=== PATIENT | female | born 1945 | race African-American/Black ===

== ENCOUNTER → 2016-10-18 | Outpatient (CLI) | payer MEDICARE, MEDICAID ==
[~2016-10-18] MED LIST: GLIM4TAB2; IOHEXOL-300 100 ML BOTTLE ONE; SODIUM CHLORIDE 0.9% 10ML VIAL ONE
== END | disposition home or self-care (01) ==
LOC: US 09:03
PROVIDERS: ATTEND Internal Medicine Nephrology
DX: R22.0 Localized swelling, mass and lump, head (principal); E04.2 Nontoxic multinodular goiter
CPT/HCPCS: 70460; 70491; 76536; A4216; Q9967

== ENCOUNTER → 2017-07-18 | Outpatient (CLI) | payer MEDICARE, MEDICAID ==
[~2017-07-18] MED LIST changes: -IOHEXOL-300 100 ML BOTTLE ONE; -SODIUM CHLORIDE 0.9% 10ML VIAL ONE
== END | disposition home or self-care (01) ==
LOC: US 09:49
PROVIDERS: ATTEND Internal Medicine Gastroenterology
DX: K80.20 Calculus of gallbladder without cholecystitis without obstruction (principal); K76.0 Fatty (change of) liver, not elsewhere classified; R16.1 Splenomegaly, not elsewhere classified; E11.9 Type 2 diabetes mellitus without complications; I10 Essential (primary) hypertension; J44.9 Chronic obstructive pulmonary disease, unspecified
CPT/HCPCS: 76700

== ENCOUNTER 2017-07-21 11:17 | Inpatient (IN) | payer MEDICARE, MEDICAID ==
[~2017-07-21] VITALS: Ht 162.6 cm; Wt 147.0 kg
[2017-07-21] MEDS ORDERED: ASPIRIN 81MG TABLET PO STA (14:18)
[2017-07-21] MEDS ORDERED: METHYLPREDNISOLONE SOD SUCC 125 MG/2 ML VIAL IV STA (14:18)
[2017-07-21] MEDS ORDERED: IPRATROPIUM/ALBUTEROL 0.5-3(2.5)MG/3ML NEB HHN ONE (14:30)
[2017-07-21] MEDS ORDERED: LEVOFLOXACIN 750MG PREMIX 150 ML IV ONE (14:30)
[2017-07-21 14:53] LABS: BASOPHILS % 0.4 % (0.0-2.0); EOSINOPHILS % 0.2 % (0.0-5.0); HEMATOCRIT. 37.7 % (36.0-48.0); HEMOGLOBIN. 11.5 g/dL (12.0-16.0); MEAN CORPUSCULAR VOLUME 108.5 fL (81.0-99.0); MEAN PLATELET VOLUME 10.4 fl (7.4-10.4); MONOCYTES % 6.5 % (2.0-8.0); NEUTROPHILS % 83.9 % (40.0-76.0); PLATELET 137 x1000/uL (130-400); RED BLOOD CELL COUNT 3.47 mill/uL (4.2-5.4); RED CELL DISTRIBUTION WIDTH 15.9 % (11.6-14.6)
[2017-07-21 14:56] LABS: PARTIAL THROMBOPLASTIN TIME 28.6 sec (23.4-31.0); PROTHROMBIN TIME 10.7 sec (9.4-11.6)
[2017-07-21 15:04] LABS: CARBON DIOXIDE 25 mEq/L (21-32); CHLORIDE 100 mEq/L (98-107); TROPONIN I 0.02 ng/mL (0.00-0.04)
[2017-07-21] MEDS ORDERED: MORPHINE SULFATE 2 MG/ML CPJ (NOT FOR IM USE) IV ONE (22:15)
[2017-07-21] MEDS ORDERED: ONDANSETRON HCL 4MG/2ML VIAL IV PRN (22:30)
[2017-07-21] MEDS ORDERED: DIPHENHYDRAMINE 50MG/ML VIAL IV PRN (22:30)
[2017-07-21] MEDS ORDERED: CLONIDINE 0.1MG TABLET PO PRN (22:30)
[2017-07-21] MEDS ORDERED: MAGNESIUM/ALUMINUM HYDROXIDE/SIMETHICONE 30ML UDC PO PRN (22:30)
[2017-07-21] MEDS: ACETAMINOPHEN 325MG TABLET PO PRN (22:43)
[2017-07-22] MEDS: SODIUM CHLORIDE 0.9% INJ 3ML FLUSH IVF SCH ×3 (06:32→22:39)
[2017-07-22 10:11] VITALS: BP 108/68
[2017-07-22 10:16] VITALS: BP 108/68
[2017-07-22] MEDS ORDERED: FOLIC ACID/VITAMIN B COMP W-C TABLET PO SCH (11:45)
[2017-07-22] MEDS ORDERED: AMLODIPINE 10MG TABLET PO SCH (11:45)
[2017-07-22] MEDS ORDERED: NIFEDIPINE XL 60MG TAB PO SCH (11:45)
[2017-07-22] MEDS ORDERED: TAMSULOSIN HCL 0.4MG SR CAPSULE PO SCH (11:45)
[2017-07-22 12:00] VITALS: BP 121/59
[2017-07-22] MEDS ORDERED: DEXTROSE 50% WATER 50ML SYRINGE IV PRN (12:15)
[2017-07-22] MEDS: INSULIN LISPRO 100 UNITS/ML SUBCUT SCH ×3 (12:50→20:24)
[2017-07-22] MEDS ORDERED: CALCIUM ACETATE 667MG CAPSULE PO SCH (13:00)
[2017-07-22] MEDS: BLOOD SUGAR DIAGNOSTIC STRIP TEST SCH ×3 (13:05→20:24)
[2017-07-22 16:00] VITALS: BP 94/44
[2017-07-22 16:30] VITALS: BP_SYST 126; BP_SYST 94; BP_DIAS 44; BP_DIAS 62
[2017-07-22] MEDS ORDERED: CLONIDINE 0.1MG TABLET PO SCH (17:00)
[2017-07-22] MEDS ORDERED: LOSARTAN POTASSIUM 50 MG TABLET PO SCH (17:00)
[2017-07-22] MEDS: IPRATROPIUM/ALBUTEROL 0.5-3(2.5)MG/3ML NEB INH PRN (17:10)
[2017-07-22] MEDS: ACETAMINOPHEN 325MG TABLET PO PRN (18:52)
[2017-07-22] MEDS: GUAIFENESIN 200MG/10ML SUGAR FREE UDC PO PRN (20:25)
[2017-07-22 20:32] VITALS: BP 115/41
[2017-07-22] MEDS ORDERED: CARVEDILOL 25MG TABLET PO SCH (21:00)
[2017-07-23] VITALS: BP 107/52
[2017-07-23 04:36] VITALS: BP 101/70
[2017-07-23] MEDS: BLOOD SUGAR DIAGNOSTIC STRIP TEST SCH ×4 (06:23→21:36)
[2017-07-23] MEDS: SODIUM CHLORIDE 0.9% INJ 3ML FLUSH IVF SCH ×3 (06:24→21:40)
[2017-07-23 07:41] VITALS: BP 96/60
[2017-07-23] MEDS: INSULIN LISPRO 100 UNITS/ML SUBCUT SCH ×4 (07:50→21:00)
[2017-07-23 12:00] VITALS: BP 93/39
[2017-07-23] MEDS: GUAIFENESIN 200MG/10ML SUGAR FREE UDC PO PRN (13:27)
[2017-07-23] MEDS: IPRATROPIUM/ALBUTEROL 0.5-3(2.5)MG/3ML NEB INH PRN (13:46)
[2017-07-23 16:00] VITALS: BP 119/54
[2017-07-23] MEDS: APIXABAN 2.5 MG TABLET PO SCH (18:49)
[2017-07-23 19:31] LABS: BASOPHILS % 0.4 % (0.0-2.0); EOSINOPHILS % 0.2 % (0.0-5.0); HEMATOCRIT. 35.5 % (36.0-48.0); HEMOGLOBIN. 10.9 g/dL (12.0-16.0); LYMPHOCYTES % 10.3 % (20.0-50.0); MEAN CORPUSCULAR HEMOGLOBIN 33.5 pg (28.0-32.0); MEAN CORPUSCULAR VOLUME 109.6 fL (81.0-99.0); MEAN PLATELET VOLUME 10.2 fl (7.4-10.4); MONOCYTES % 7.6 % (2.0-8.0); NEUTROPHILS % 81.5 % (40.0-76.0); PLATELET 131 x1000/uL (130-400); RED BLOOD CELL COUNT 3.24 mill/uL (4.2-5.4); RED CELL DISTRIBUTION WIDTH 15.5 % (11.6-14.6)
[2017-07-23 19:32] VITALS: BP 123/64
[2017-07-23 19:51] LABS: PHOSPHORUS 3.2 mg/dL (2.5-4.9)
[2017-07-24 00:51] VITALS: BP 119/56
[2017-07-24 04:59] VITALS: BP 147/54
[2017-07-24] MEDS: SODIUM CHLORIDE 0.9% INJ 3ML FLUSH IVF SCH ×3 (06:15→21:21)
[2017-07-24] MEDS: BLOOD SUGAR DIAGNOSTIC STRIP TEST SCH ×4 (06:15→21:21)
[2017-07-24 07:27] LABS: BASOPHILS % 0.2 % (0.0-2.0); EOSINOPHILS % 0.4 % (0.0-5.0); HEMATOCRIT. 34.7 % (36.0-48.0); HEMOGLOBIN. 10.5 g/dL (12.0-16.0); LYMPHOCYTES % 10.4 % (20.0-50.0); MEAN CORPUSCULAR VOLUME 108.5 fL (81.0-99.0); MEAN PLATELET VOLUME 10.2 fl (7.4-10.4); MONOCYTES % 7.6 % (2.0-8.0); NEUTROPHILS % 81.4 % (40.0-76.0); PLATELET 136 x1000/uL (130-400); RED CELL DISTRIBUTION WIDTH 15.7 % (11.6-14.6)
[2017-07-24 08:00] VITALS: BP 112/54
[2017-07-24] MEDS: INSULIN LISPRO 100 UNITS/ML SUBCUT SCH ×4 (09:24→21:26)
[2017-07-24] MEDS: APIXABAN 2.5 MG TABLET PO SCH ×2 (10:58→18:53)
[2017-07-24 12:00] VITALS: BP 98/63
[2017-07-24] MEDS: GUAIFENESIN 200MG/10ML SUGAR FREE UDC PO PRN (12:59)
[2017-07-24] MEDS ORDERED: DIGOXIN 500MCG/2ML AMP IV NR (13:15)
[2017-07-24] MEDS ORDERED: MAGNESIUM CITRATE 300ML SOLUTION PO NR (13:17)
[2017-07-24] MEDS: DILTIAZEM HCL 60MG TABLET PO SCH ×2 (13:48→18:52)
[2017-07-24 16:00] VITALS: BP 124/58
[2017-07-24] MEDS: ACETAMINOPHEN 325MG TABLET PO PRN (16:18)
[2017-07-24] MEDS ORDERED: DIGOXIN 250MCG TABLET PO NR (18:00)
[2017-07-24 20:00] VITALS: BP 134/44
[2017-07-25] VITALS: BP 124/55
[2017-07-25] MEDS: DILTIAZEM HCL 60MG TABLET PO SCH ×3 (01:11→13:15)
[2017-07-25 04:00] VITALS: BP 117/51
[2017-07-25] MEDS: SODIUM CHLORIDE 0.9% INJ 3ML FLUSH IVF SCH (06:10)
[2017-07-25] MEDS: GUAIFENESIN 200MG/10ML SUGAR FREE UDC PO PRN (06:18)
[2017-07-25] MEDS: BLOOD SUGAR DIAGNOSTIC STRIP TEST SCH ×2 (06:20→12:38)
[2017-07-25 07:12] LABS: BASOPHILS % 0.2 % (0.0-2.0); EOSINOPHILS % 0.6 % (0.0-5.0); HEMATOCRIT. 36.4 % (36.0-48.0); LYMPHOCYTES % 12.6 % (20.0-50.0); MEAN CORPUSCULAR HEMOGLOBIN 32.8 pg (28.0-32.0); MEAN CORPUSCULAR VOLUME 108.5 fL (81.0-99.0); MEAN PLATELET VOLUME 10.5 fl (7.4-10.4); MONOCYTES % 8.1 % (2.0-8.0); NEUTROPHILS % 78.5 % (40.0-76.0); PLATELET 139 x1000/uL (130-400); RED BLOOD CELL COUNT 3.36 mill/uL (4.2-5.4); RED CELL DISTRIBUTION WIDTH 15.3 % (11.6-14.6)
[2017-07-25 08:00] VITALS: BP 108/41
[2017-07-25 08:07] LABS: CARBON DIOXIDE 25 mEq/L (21-32); CHLORIDE 102 mEq/L (98-107)
[2017-07-25] MEDS: APIXABAN 2.5 MG TABLET PO SCH (09:03)
[2017-07-25] MEDS: INSULIN LISPRO 100 UNITS/ML SUBCUT SCH ×2 (09:09→12:50)
[2017-07-25 12:00] VITALS: BP 130/68
[2017-07-25 13:43] VITALS: BP 130/68
[2017-07-25] MEDS ORDERED: DIGOXIN 125MCG TABLET PO SCH (18:00)
== END 2017-07-25 14:25 | disposition home or self-care (01) | DRG 291 ==
LOC: ER 12:03 → 6WST 16:29 → EDBEDREQ 16:59 → ENRESERV 07-22 08:35 → CANRESERV 07-22 08:36
PROVIDERS: ADMIT Internal Medicine; ATTEND Internal Medicine
DX: I13.2 Hypertensive heart and chronic kidney disease with heart failure and with stage 5 chronic kidney disease, or end stage renal disease (principal); I50.33 Acute on chronic diastolic (congestive) heart failure; E11.22 Type 2 diabetes mellitus with diabetic chronic kidney disease; E87.5 Hyperkalemia; N18.6 End stage renal disease; E87.1 Hypo-osmolality and hyponatremia; Z68.43 Body mass index [BMI] 50.0-59.9, adult; E66.01 Morbid (severe) obesity due to excess calories; D63.8 Anemia in other chronic diseases classified elsewhere; J44.9 Chronic obstructive pulmonary disease, unspecified; Z99.2 Dependence on renal dialysis; J11.1 Influenza due to unidentified influenza virus with other respiratory manifestations; I48.91 Unspecified atrial fibrillation; I48.2 Chronic atrial fibrillation; K59.00 Constipation, unspecified; Z79.01 Long term (current) use of anticoagulants; Z83.3 Family history of diabetes mellitus; Z87.891 Personal history of nicotine dependence; Z79.899 Other long term (current) drug therapy
CPT/HCPCS: 36415; 71045; 76700; 80048; 80053; 82040; 82550; 82962; 83690; 83735; 83880; 83970; 84100; 84443; 84484; 85025; 85610; 85730; 87040; 87804; 93005; 93970; 94640; 94664; 96365; 96366; 96375; 99285; A6261; C1893; J1160; J1815; J1956; J2930; J7030; J7620

== ENCOUNTER 2017-07-28 08:41 | Emergency (ER) | payer MEDICARE, MEDICAID ==
[~2017-07-28] VITALS: Ht 162.6 cm; Wt 136.0 kg
[2017-07-28] MEDS ORDERED: ONDANSETRON HCL 4MG/2ML VIAL IV STA (08:46)
[2017-07-28 09:15] LABS: HEMATOCRIT. 38.5 % (36.0-48.0); HEMOGLOBIN. 11.6 g/dL (12.0-16.0); MEAN CORPUSCULAR HEMOGLOBIN 32.5 pg (28.0-32.0); MEAN CORPUSCULAR VOLUME 107.8 fL (81.0-99.0); MEAN PLATELET VOLUME 9.8 fl (7.4-10.4); PLATELET 167 x1000/uL (130-400); RED BLOOD CELL COUNT 3.57 mill/uL (4.2-5.4); RED CELL DISTRIBUTION WIDTH 14.9 % (11.6-14.6)
[2017-07-28 09:22] LABS: PROTHROMBIN TIME 10.7 sec (9.4-11.6)
[2017-07-28] MEDS ORDERED: METOCLOPRAMIDE HCL 10MG/2ML VIAL IV ONE (09:30)
[2017-07-28 09:32] LABS: CARBON DIOXIDE 26 mEq/L (21-32); CHLORIDE 102 mEq/L (98-107)
[2017-07-28 09:41] LABS: TROPONIN I 0.02 ng/mL (0.00-0.04)
[2017-07-28 09:43] LABS: PLATELET ESTIMATE NORMAL
[2017-07-28] MEDS ORDERED: SODIUM CHLORIDE 0.9% 500 ML IV ONE (10:00)
[2017-07-28] MEDS ORDERED: DEXTROSE 50% WATER 50ML SYRINGE IV ONE (10:30)
[2017-07-28] MEDS ORDERED: AZITHROMYCIN 500 MG in DEXT 5% WATER 250 ML IV STA (11:19)
[2017-07-28] MEDS ORDERED: AZITHROMYCIN 500 MG TABLET PO ONE (11:30)
[2017-07-28] MEDS ORDERED: PREDNISONE 20MG TABLET PO ONE (11:30)
[2017-07-28] MEDS ORDERED: ALBUTEROL (0.083%) 2.5MG/3ML NEB HHN STA (12:48)
[2017-07-28 15:45] VITALS: BP 155/70
== END 2017-07-28 18:55 | disposition home or self-care (01) ==
LOC: ER 08:53
DX: J44.1 Chronic obstructive pulmonary disease with (acute) exacerbation (principal); R11.2 Nausea with vomiting, unspecified; I11.0 Hypertensive heart disease with heart failure; E11.9 Type 2 diabetes mellitus without complications; I50.9 Heart failure, unspecified; E66.01 Morbid (severe) obesity due to excess calories; Z85.038 Personal history of other malignant neoplasm of large intestine; Z99.2 Dependence on renal dialysis; Z86.73 Personal history of transient ischemic attack (TIA), and cerebral infarction without residual deficits
CPT/HCPCS: 36415; 80053; 83605; 83690; 84484; 85025; 85610; 93005; 94640; 96361; 96374; 99285; J0456; J2405; J2765; J7040; J7512; J7611; J7060

== ENCOUNTER 2017-12-30 18:33 | Inpatient (IN) | payer MEDICARE, MEDICAID ==
[~2017-12-30] VITALS: Ht 160 cm; Wt 175.2 kg
[~2017-12-30 18:33] MED LIST changes: +AMA4 PO; +APIX2.5T PO; +DILT30TA38 PO; +FOLI0.4T2 PO; -GLIM4TAB2; +METO10TA3 PO; +SEVE800T8 PO
[2017-12-30] MEDS ORDERED: SODIUM CHLORIDE 0.9% 500 ML IV ONE (19:15)
[2017-12-30 19:27] LABS: HEMATOCRIT. 30.7 % (36.0-48.0); HEMOGLOBIN. 9.3 g/dL (12.0-16.0); MEAN CORPUSCULAR HEMOGLOBIN 31.5 pg (28.0-32.0); MEAN CORPUSCULAR VOLUME 103.6 fL (81.0-99.0); MEAN PLATELET VOLUME 9.6 fl (7.4-10.4); PLATELET 211 x1000/uL (130-400); RED BLOOD CELL COUNT 2.96 mill/uL (4.2-5.4); RED CELL DISTRIBUTION WIDTH 14.9 % (11.6-14.6)
[2017-12-30 19:32] LABS: CHLORIDE 102 mEq/L (98-107); PROTHROMBIN TIME 10.7 sec (9.4-11.6)
[2017-12-30 19:44] LABS: PLATELET ESTIMATE NORMAL
[2017-12-30] MEDS ORDERED: ONDANSETRON HCL 4MG/2ML VIAL IV NR (21:15)
[2017-12-30] MEDS ORDERED: ASPIRIN 81MG TABLET PO ONE (22:45)
[2017-12-31] VITALS (10 sets, daily range): BP systolic 100–139; BP diastolic 48–81
[2017-12-31] MEDS ORDERED: DOCUSATE SODIUM 100MG CAPSULE PO PRN (00:30)
[2017-12-31] MEDS ORDERED: MAGNESIUM/ALUMINUM HYDROXIDE/SIMETHICONE 30ML UDC PO PRN (00:30)
[2017-12-31] MEDS ORDERED: CLONIDINE 0.1MG TABLET PO PRN (00:30)
[2017-12-31] MEDS ORDERED: ACETAMINOPHEN 325MG TABLET PO PRN (00:30)
[2017-12-31] MEDS ORDERED: HYDROCODONE/ACETAMINOPHEN 5/325MG TABLET PO PRN ×2 (00:30→08:45)
[2017-12-31] MEDS ORDERED: IPRATROPIUM/ALBUTEROL 0.5-3(2.5)MG/3ML NEB INH PRN (00:30)
[2017-12-31] MEDS ORDERED: CINA90TA PO (07:22)
[2017-12-31] MEDS ORDERED: AMI2 PO (07:25)
[2017-12-31] MEDS ORDERED: DEXTROSE 50% WATER 50ML SYRINGE IV PRN (08:30)
[2017-12-31] MEDS ORDERED: ONDANSETRON HCL 4MG/2ML VIAL IV PRN (08:45)
[2017-12-31] MEDS: ONDANSETRON HCL 4MG/2ML VIAL IV PRN (09:19)
[2017-12-31 10:46] LABS: CREATINE KINASE MB FRACTION 1.7 ng/mL (0.5-3.6)
[2017-12-31] MEDS: BLOOD SUGAR DIAGNOSTIC STRIP TEST SCH ×3 (11:20→20:19)
[2017-12-31 11:22] LABS: AMYLASE 59 IU/L (25-115)
[2017-12-31 12:24] LABS: HEMATOCRIT. 31.9 % (36.0-48.0); HEMOGLOBIN. 9.7 g/dL (12.0-16.0); MEAN CORPUSCULAR HEMOGLOBIN 31.9 pg (28.0-32.0); MEAN CORPUSCULAR VOLUME 104.9 fL (81.0-99.0); MEAN PLATELET VOLUME 10.1 fl (7.4-10.4); PLATELET 190 x1000/uL (130-400); RED BLOOD CELL COUNT 3.04 mill/uL (4.2-5.4); RED CELL DISTRIBUTION WIDTH 14.9 % (11.6-14.6)
[2017-12-31] MEDS: FLUCONAZOLE 50MG TABLET PO SCH (12:32)
[2017-12-31] MEDS: INSULIN LISPRO 100 UNITS/ML SUBCUT SCH ×3 (12:32→20:19)
[2017-12-31 14:47] LABS: PLATELET ESTIMATE NORMAL
[2017-12-31] MEDS ORDERED: IOHEXOL-300 100 ML BOTTLE ONE (16:17)
[2017-12-31 18:15] LABS: CREATINE KINASE MB FRACTION 1.4 ng/mL (0.5-3.6)
[2017-12-31] MEDS: AMIODARONE HCL 200 MG TABLET PO SCH (20:05)
[2017-12-31] MEDS: CINACALCET HCL 90MG TABLET PO SCH (20:05)
[2017-12-31] MEDS: PIPERACILLIN/TAZ 3.375G PREMIX 50 ML IV SCH (20:05)
[2017-12-31] MEDS: FOLIC ACID 0.4MG TABLET PO SCH (20:05)
[2017-12-31] MEDS: HYDROCODONE/ACETAMINOPHEN 10/325MG TABLET PO PRN (20:06)
[2017-12-31] MEDS: APIXABAN 2.5 MG TABLET PO SCH (20:07)
[2017-12-31] MEDS: IPRATROPIUM/ALBUTEROL 0.5-3(2.5)MG/3ML NEB HHN SCH (21:26)
[2017-12-31] MEDS: DILTIAZEM HCL 30MG TABLET PO SCH (22:20)
[2018-01-01] VITALS (12 sets, daily range): BP systolic 91–135; BP diastolic 44–69
[2018-01-01] MEDS: IPRATROPIUM/ALBUTEROL 0.5-3(2.5)MG/3ML NEB HHN SCH ×3 (01:43→21:26)
[2018-01-01] MEDS: PIPERACILLIN/TAZ 3.375G PREMIX 50 ML IV SCH ×3 (02:18→18:49)
[2018-01-01] MEDS: BLOOD SUGAR DIAGNOSTIC STRIP TEST SCH ×4 (05:58→21:00)
[2018-01-01] MEDS: DILTIAZEM HCL 30MG TABLET PO SCH ×3 (05:58→22:00)
[2018-01-01] MEDS: HYDROCODONE/ACETAMINOPHEN 10/325MG TABLET PO PRN (06:02)
[2018-01-01 06:44] LABS: HEMATOCRIT. 32.3 % (36.0-48.0); HEMOGLOBIN. 9.7 g/dL (12.0-16.0); MEAN CORPUSCULAR HEMOGLOBIN 31.8 pg (28.0-32.0); MEAN CORPUSCULAR VOLUME 105.6 fL (81.0-99.0); MEAN PLATELET VOLUME 10.8 fl (7.4-10.4); PLATELET 177 x1000/uL (130-400); RED BLOOD CELL COUNT 3.06 mill/uL (4.2-5.4); RED CELL DISTRIBUTION WIDTH 14.7 % (11.6-14.6)
[2018-01-01] MEDS: FOLIC ACID 0.4MG TABLET PO SCH (09:24)
[2018-01-01] MEDS: FLUCONAZOLE 50MG TABLET PO SCH (09:24)
[2018-01-01] MEDS: CINACALCET HCL 90MG TABLET PO SCH (09:24)
[2018-01-01] MEDS: INSULIN LISPRO 100 UNITS/ML SUBCUT SCH ×4 (09:25→21:00)
[2018-01-01] MEDS: APIXABAN 2.5 MG TABLET PO SCH ×2 (09:25→17:38)
[2018-01-01] MEDS: AMIODARONE HCL 200 MG TABLET PO SCH ×2 (09:25→17:00)
[2018-01-01 14:01] LABS: BG BASE EXCESS -5.3 mmol/L (-2.0-2.0); BG DEOXYHEMOGLOBIN 6.7 % (0.0-5.0); BG FRACTION INSPIRED OXYGEN 28; BG HCO3 ACT 23.2 mmol/L (22.0-26.0); BG METHEMOGLOBIN 0.3 % (0.0-1.5); BG OXYGEN SATURATION 93.2 % (92.0-98.5); BG PCO2 60.8 mmHg (35.0-45.0); BG PH 7.199 (7.350-7.450); BG PO2 69.3 mmHg (75.0-100.0); BG SAMPLE SITE RIGHT RADIAL; BG TOTAL HEMOGLOBIN 10.4 g/dL (12.0-18.0); BG VENT MODE NASAL CANNULA
[2018-01-01 16:22] LABS: PLATELET ESTIMATE NORMAL
[2018-01-01 16:29] LABS: AMMONIA 40 uMol/L (<32)
[2018-01-01 18:03] LABS: BG BASE EXCESS -3.8 mmol/L (-2.0-2.0); BG BILEVEL POS AIRWAY PRESSURE 15/5; BG CARBOXYHEMOGLOBIN 0.5 % (0.5-1.5); BG DEOXYHEMOGLOBIN 4.4 % (0.0-5.0); BG FRACTION INSPIRED OXYGEN 60; BG HCO3 ACT 24.4 mmol/L (22.0-26.0); BG METHEMOGLOBIN 0.2 % (0.0-1.5); BG OXYGEN SATURATION 95.6 % (92.0-98.5); BG OXYHEMOGLOBIN 94.9 % (94.0-97.0); BG PO2 82.7 mmHg (75.0-100.0); BG SAMPLE SITE RIGHT RADIAL; BG TOTAL HEMOGLOBIN 10.5 g/dL (12.0-18.0); BG VENT MODE MASK - BIPAP; BG VENT RATE 18 set
[2018-01-01] MEDS: ONDANSETRON HCL 4MG/2ML VIAL IV PRN (18:50)
[2018-01-01] MEDS ORDERED: LACTULOSE 20G/30ML UDC PO NR (19:30)
[2018-01-01] MEDS: BUDESONIDE 0.5MG/2ML NEB HHN SCH (21:26)
[2018-01-02] VITALS (11 sets, daily range): BP systolic 78–167; BP diastolic 42–99
[2018-01-02] MEDS: ONDANSETRON HCL 4MG/2ML VIAL IV PRN ×3 (01:21→22:50)
[2018-01-02] MEDS: PIPERACILLIN/TAZ 3.375G PREMIX 50 ML IV SCH ×3 (01:21→18:19)
[2018-01-02] MEDS: IPRATROPIUM/ALBUTEROL 0.5-3(2.5)MG/3ML NEB HHN SCH ×4 (02:19→21:20)
[2018-01-02] MEDS: DILTIAZEM HCL 30MG TABLET PO SCH ×3 (06:00→22:00)
[2018-01-02] MEDS: BLOOD SUGAR DIAGNOSTIC STRIP TEST SCH ×4 (06:30→21:43)
[2018-01-02 07:01] LABS: HEMATOCRIT. 29.6 % (36.0-48.0); HEMOGLOBIN. 8.9 g/dL (12.0-16.0); MEAN CORPUSCULAR HEMOGLOBIN 31.3 pg (28.0-32.0); MEAN CORPUSCULAR VOLUME 104.4 fL (81.0-99.0); MEAN PLATELET VOLUME 10.8 fl (7.4-10.4); PLATELET 183 x1000/uL (130-400); RED BLOOD CELL COUNT 2.83 mill/uL (4.2-5.4); RED CELL DISTRIBUTION WIDTH 15.1 % (11.6-14.6)
[2018-01-02 07:13] LABS: CHLORIDE 99 mEq/L (98-107)
[2018-01-02] MEDS: CINACALCET HCL 90MG TABLET PO SCH (08:20)
[2018-01-02] MEDS: AMIODARONE HCL 200 MG TABLET PO SCH ×2 (08:20→21:43)
[2018-01-02] MEDS: INSULIN LISPRO 100 UNITS/ML SUBCUT SCH ×4 (08:21→21:47)
[2018-01-02] MEDS: FOLIC ACID 0.4MG TABLET PO SCH (08:21)
[2018-01-02] MEDS: FLUCONAZOLE 50MG TABLET PO SCH (08:21)
[2018-01-02] MEDS: APIXABAN 2.5 MG TABLET PO SCH (09:00)
[2018-01-02] MEDS: BUDESONIDE 0.5MG/2ML NEB HHN SCH ×2 (09:05→21:21)
[2018-01-02 11:27] LABS: BG BASE EXCESS 0.6 mmol/L (-2.0-2.0); BG CARBOXYHEMOGLOBIN 0.4 % (0.5-1.5); BG DEOXYHEMOGLOBIN 6.2 % (0.0-5.0); BG FRACTION INSPIRED OXYGEN 28; BG HCO3 ACT 27.7 mmol/L (22.0-26.0); BG METHEMOGLOBIN 0.3 % (0.0-1.5); BG OXYGEN SATURATION 93.8 % (92.0-98.5); BG OXYHEMOGLOBIN 93.1 % (94.0-97.0); BG PCO2 57.8 mmHg (35.0-45.0); BG PH 7.298 (7.350-7.450); BG PO2 68.6 mmHg (75.0-100.0); BG SAMPLE SITE RIGHT RADIAL; BG TOTAL HEMOGLOBIN 9.5 g/dL (12.0-18.0); BG VENT MODE NASAL CANNULA
[2018-01-02] MEDS: ZINC SULFATE 220 MG ( 50 ) CAPSULE PO SCH (13:36)
[2018-01-02] MEDS: HYDROCODONE/ACETAMINOPHEN 10/325MG TABLET PO PRN (15:19)
[2018-01-02] MEDS: FOLIC ACID/VITAMIN B COMP W-C TABLET PO SCH (17:37)
[2018-01-02 17:42] LABS: PLATELET ESTIMATE NORMAL
[2018-01-02] MEDS: ASCORBIC ACID 250 MG TABLET PO SCH (21:43)
[2018-01-02] MEDS ORDERED: LINEZOLID 600 MG PREMIX 300 ML IV SCH (22:45)
[2018-01-03] VITALS (38 sets, daily range): BP systolic 36–127; BP diastolic 22–86
[2018-01-03] MEDS: IPRATROPIUM/ALBUTEROL 0.5-3(2.5)MG/3ML NEB HHN SCH ×4 (00:54→20:28)
[2018-01-03] MEDS: LINEZOLID 600 MG PREMIX 300 ML IV SCH ×2 (01:40→17:10)
[2018-01-03] MEDS: PIPERACILLIN/TAZ 3.375G PREMIX 50 ML IV SCH ×2 (01:40→09:53)
[2018-01-03] MEDS: DILTIAZEM HCL 30MG TABLET PO SCH ×4 (06:28→21:27)
[2018-01-03] MEDS: BLOOD SUGAR DIAGNOSTIC STRIP TEST SCH ×4 (06:28→21:18)
[2018-01-03] MEDS: ONDANSETRON HCL 4MG/2ML VIAL IV PRN ×2 (08:12→14:36)
[2018-01-03] MEDS: INSULIN LISPRO 100 UNITS/ML SUBCUT SCH ×4 (08:12→22:17)
[2018-01-03] MEDS: BUDESONIDE 0.5MG/2ML NEB HHN SCH ×2 (09:02→20:27)
[2018-01-03] MEDS: AMIODARONE HCL 200 MG TABLET PO SCH ×3 (09:39→21:17)
[2018-01-03] MEDS: FLUCONAZOLE 50MG TABLET PO SCH (09:40)
[2018-01-03] MEDS: CINACALCET HCL 90MG TABLET PO SCH (09:41)
[2018-01-03] MEDS: FOLIC ACID 0.4MG TABLET PO SCH (09:41)
[2018-01-03] MEDS: ZINC SULFATE 220 MG ( 50 ) CAPSULE PO SCH (09:42)
[2018-01-03] MEDS: FOLIC ACID/VITAMIN B COMP W-C TABLET PO SCH (09:42)
[2018-01-03] MEDS: ASCORBIC ACID 250 MG TABLET PO SCH ×3 (09:42→21:16)
[2018-01-03 10:33] LABS: BG BASE EXCESS 11.2 mmol/L (-2.0-2.0); BG CARBOXYHEMOGLOBIN 0.6 % (0.5-1.5); BG DEOXYHEMOGLOBIN 7.9 % (0.0-5.0); BG FRACTION INSPIRED OXYGEN 28; BG HCO3 ACT 38.1 mmol/L (22.0-26.0); BG METHEMOGLOBIN 0.2 % (0.0-1.5); BG OXYHEMOGLOBIN 91.3 % (94.0-97.0); BG PCO2 66.5 mmHg (35.0-45.0); BG PH 7.376 (7.350-7.450); BG PO2 65.4 mmHg (75.0-100.0); BG SAMPLE SITE LEFT RADIAL; BG TOTAL HEMOGLOBIN 9.2 g/dL (12.0-18.0); BG VENT MODE NASAL CANNULA
[2018-01-03] MEDS ORDERED: SODIUM BICARBONATE 4% (2.4MEQ) 5ML VIAL IV ONE (13:09)
[2018-01-03] MEDS ORDERED: LIDOCAINE HCL/PF 1% 10 MG/ML 5ML VIAL ONE (13:09)
[2018-01-03 13:21] LABS: HEMATOCRIT. 30.9 % (36.0-48.0); HEMOGLOBIN. 9.1 g/dL (12.0-16.0); MEAN CORPUSCULAR HEMOGLOBIN 31.1 pg (28.0-32.0); PLATELET 239 x1000/uL (130-400); RED BLOOD CELL COUNT 2.91 mill/uL (4.2-5.4); RED CELL DISTRIBUTION WIDTH 15.9 % (11.6-14.6)
[2018-01-03 14:22] LABS: PLATELET ESTIMATE NORMAL
[2018-01-03] MEDS: ACETYLCYSTEINE 100MG/ML 10% VIAL 4ML INH SCH (16:29)
[2018-01-03] MEDS: PIPERACILLIN/TAZ 2.25G PREMIX 50 ML IV SCH (18:00)
[2018-01-03] MEDS ORDERED: ALBUMIN HUMAN 25GM/500ML (5%) IV SCH (20:00)
[2018-01-03] MEDS: PHENYLEPHRINE 40 MG in DEXT 5% WATER 246 ML IV PRN (20:51)
[2018-01-03] MEDS: METOCLOPRAMIDE HCL 10MG/2ML VIAL IV SCH (21:17)
[2018-01-03] MEDS: NOREPINEPHRINE 32 MG in DEXT 5% WATER 468 ML IV PRN (21:29)
[2018-01-03 22:37] LABS: BG BASE EXCESS -4.3 mmol/L (-2.0-2.0); BG CARBOXYHEMOGLOBIN 0.8 % (0.5-1.5); BG DEOXYHEMOGLOBIN 12.5 % (0.0-5.0); BG FRACTION INSPIRED OXYGEN 60; BG HCO3 ACT 24.2 mmol/L (22.0-26.0); BG METHEMOGLOBIN 0.3 % (0.0-1.5); BG OXYGEN SATURATION 87.4 % (92.0-98.5); BG OXYHEMOGLOBIN 86.4 % (94.0-97.0); BG PCO2 62.7 mmHg (35.0-45.0); BG PH 7.205 (7.350-7.450); BG SAMPLE SITE RIGHT BRACHIAL; BG VENT MODE VAPOTHERM
[2018-01-04] VITALS (102 sets, daily range): BP systolic 41–161; BP diastolic 20–104
[2018-01-04] MEDS ORDERED: METOCLOPRAMIDE HCL 10MG/2ML VIAL IV SCH
[2018-01-04] MEDS: IPRATROPIUM/ALBUTEROL 0.5-3(2.5)MG/3ML NEB HHN SCH ×6 (00:09→20:37)
[2018-01-04] MEDS: ACETYLCYSTEINE 100MG/ML 10% VIAL 4ML INH SCH ×3 (00:10→15:26)
[2018-01-04] MEDS: LINEZOLID 600 MG PREMIX 300 ML IV SCH ×2 (01:07→13:13)
[2018-01-04] MEDS: PHENYLEPHRINE 40 MG in DEXT 5% WATER 246 ML IV PRN ×2 (01:12→09:17)
[2018-01-04] MEDS: PIPERACILLIN/TAZ 2.25G PREMIX 50 ML IV SCH ×3 (03:16→17:55)
[2018-01-04 05:35] LABS: HEMATOCRIT. 31.8 % (36.0-48.0); HEMOGLOBIN. 9.4 g/dL (12.0-16.0); MEAN CORPUSCULAR HEMOGLOBIN 31.4 pg (28.0-32.0); MEAN CORPUSCULAR VOLUME 106.2 fL (81.0-99.0); MEAN PLATELET VOLUME 10.4 fl (7.4-10.4); PLATELET 294 x1000/uL (130-400); RED CELL DISTRIBUTION WIDTH 15.7 % (11.6-14.6)
[2018-01-04] MEDS: DILTIAZEM HCL 30MG TABLET PO SCH ×3 (06:00→21:07)
[2018-01-04] MEDS: METOCLOPRAMIDE HCL 10MG/2ML VIAL IV SCH (06:27)
[2018-01-04] MEDS: BLOOD SUGAR DIAGNOSTIC STRIP TEST SCH ×14 (07:08→23:11)
[2018-01-04] MEDS: INSULIN LISPRO 100 UNITS/ML SUBCUT SCH (07:09)
[2018-01-04] MEDS: BUDESONIDE 0.5MG/2ML NEB HHN SCH (07:30)
[2018-01-04] MEDS: ASCORBIC ACID 250 MG TABLET PO SCH ×2 (09:00→21:06)
[2018-01-04] MEDS: CINACALCET HCL 90MG TABLET PO SCH (09:00)
[2018-01-04] MEDS: AMIODARONE HCL 200 MG TABLET PO SCH ×2 (09:00→21:06)
[2018-01-04] MEDS: FLUCONAZOLE 50MG TABLET PO SCH (09:00)
[2018-01-04] MEDS: FOLIC ACID/VITAMIN B COMP W-C TABLET PO SCH (09:00)
[2018-01-04] MEDS ORDERED: MIDAZOLAM HCL 100 MG in DEXT 5% WATER 80 ML IV PRN (10:00)
[2018-01-04] MEDS ORDERED: PANTOPRAZOLE SODIUM 40 MG/VIAL IV ONE (10:00)
[2018-01-04] MEDS ORDERED: DEXTROSE 50% WATER 50ML SYRINGE IV PRN ×2 (10:15)
[2018-01-04 10:36] LABS: NUCLEATED RED BLOOD CELLS 1 /100 WBC
[2018-01-04 10:37] LABS: PLATELET ESTIMATE NORMAL
[2018-01-04] MEDS: VASOPRESSIN 10 UNIT in SODIUM CHLORIDE 0.9% 99.5 ML IV PRN ×4 (10:58→23:11)
[2018-01-04] MEDS: INSULIN REGULAR (DRIP) 100 UNITS in SODIUM CHLORIDE 0.9% 100 ML IV SCH ×3 (11:16→21:12)
[2018-01-04 11:17] LABS: D-DIMER 3.21 mg/L FEU (<0.50); INR 1.2; PARTIAL THROMBOPLASTIN TIME 42.4 sec (23.4-31.0); PROTHROMBIN TIME 12.5 sec (9.4-11.6)
[2018-01-04 12:01] LABS: BG BASE EXCESS -6.4 mmol/L (-2.0-2.0); BG CARBOXYHEMOGLOBIN 0.3 % (0.5-1.5); BG DEOXYHEMOGLOBIN 0.4 % (0.0-5.0); BG FRACTION INSPIRED OXYGEN 80; BG HCO3 ACT 18.6 mmol/L (22.0-26.0); BG METHEMOGLOBIN 0.3 % (0.0-1.5); BG OXYGEN SATURATION 99.6 % (92.0-98.5); BG PCO2 34.9 mmHg (35.0-45.0); BG PH 7.344 (7.350-7.450); BG PO2 247.1 mmHg (75.0-100.0); BG SAMPLE SITE RIGHT RADIAL; BG TIDAL VOLUME(mL) 600 mL; BG TOTAL HEMOGLOBIN 10.2 g/dL (12.0-18.0); BG VENT MODE VENT - A/C; BG VENT RATE 18 set
[2018-01-04] MEDS: FENTANYL CITRATE/PF 500 MCG in SODIUM CHLORIDE 0.9% 40 ML IV PRN (12:56)
[2018-01-04] MEDS: NOREPINEPHRINE 32 MG in DEXT 5% WATER 468 ML IV PRN (13:12)
[2018-01-04] MEDS ORDERED: NORMAL SALINE 0.9% 10 ML SYR ONE (13:22)
[2018-01-04] MEDS ORDERED: ETOMIDATE 2MG/ML 10ML VIAL IV ONE (13:22)
[2018-01-04] MEDS ORDERED: VECURONIUM BROMIDE 10 MG/VIAL IV ONE (13:22)
[2018-01-04] MEDS ORDERED: AMIKACIN SULFATE 700 MG in SODIUM CHLORIDE 0.9% 100 ML IV NR (17:00)
[2018-01-04] MEDS: SUCRALFATE 1 G/10 ML UDC NG SCH ×2 (17:55→23:11)
[2018-01-04] MEDS: PANTOPRAZOLE SODIUM 40 MG/VIAL IV SCH (17:55)
[2018-01-04] MEDS: INSULIN GLARGINE UD 100 UNITS/ML SYR SUBCUT SCH (18:14)
[2018-01-04 19:27] LABS: HEMATOCRIT. 35.8 % (36.0-48.0); HEMOGLOBIN. 10.6 g/dL (12.0-16.0); MEAN CORPUSCULAR HEMOGLOBIN 31.5 pg (28.0-32.0); MEAN CORPUSCULAR VOLUME 106.3 fL (81.0-99.0); MEAN PLATELET VOLUME 10.1 fl (7.4-10.4); PLATELET 277 x1000/uL (130-400); RED BLOOD CELL COUNT 3.37 mill/uL (4.2-5.4)
[2018-01-04 19:34] LABS: CHLORIDE 94 mEq/L (98-107)
[2018-01-04 20:09] LABS: PLATELET ESTIMATE NORMAL
[2018-01-04] MEDS: PHENYLEPHRINE 80 MG in DEXT 5% WATER 492 ML IV PRN (21:29)
[2018-01-05] VITALS (150 sets, daily range): BP systolic 0–167; BP diastolic 0–102
[2018-01-05] MEDS: IPRATROPIUM/ALBUTEROL 0.5-3(2.5)MG/3ML NEB HHN SCH ×3 (00:01→08:25)
[2018-01-05] MEDS: ACETYLCYSTEINE 100MG/ML 10% VIAL 4ML INH SCH (00:01)
[2018-01-05] MEDS: BLOOD SUGAR DIAGNOSTIC STRIP TEST SCH ×6 (00:10→06:53)
[2018-01-05] MEDS: PIPERACILLIN/TAZ 2.25G PREMIX 50 ML IV SCH ×2 (01:05→10:00)
[2018-01-05] MEDS: LINEZOLID 600 MG PREMIX 300 ML IV SCH (01:34)
[2018-01-05] MEDS: FENTANYL CITRATE/PF 500 MCG in SODIUM CHLORIDE 0.9% 40 ML IV PRN (03:09)
[2018-01-05 04:30] LABS: HEMATOCRIT. 35.3 % (36.0-48.0); HEMOGLOBIN. 10.6 g/dL (12.0-16.0); MEAN CORPUSCULAR HEMOGLOBIN 30.8 pg (28.0-32.0); MEAN CORPUSCULAR VOLUME 102.8 fL (81.0-99.0); MEAN PLATELET VOLUME 10.1 fl (7.4-10.4); PLATELET 270 x1000/uL (130-400); RED BLOOD CELL COUNT 3.44 mill/uL (4.2-5.4); RED CELL DISTRIBUTION WIDTH 15.7 % (11.6-14.6)
[2018-01-05 04:34] LABS: INR 1.4; PARTIAL THROMBOPLASTIN TIME 37.5 sec (23.4-31.0); PROTHROMBIN TIME 14.6 sec (9.4-11.6)
[2018-01-05] MEDS: PHENYLEPHRINE 80 MG in DEXT 5% WATER 492 ML IV PRN (04:40)
[2018-01-05] MEDS: DILTIAZEM HCL 30MG TABLET PO SCH (05:35)
[2018-01-05] MEDS: PANTOPRAZOLE SODIUM 40 MG/VIAL IV SCH (05:35)
[2018-01-05] MEDS: SUCRALFATE 1 G/10 ML UDC NG SCH ×2 (05:35→12:00)
[2018-01-05] MEDS: NOREPINEPHRINE 32 MG in DEXT 5% WATER 468 ML IV PRN (05:58)
[2018-01-05] MEDS ORDERED: ATROPINE SULFATE 1MG/10ML SYR IV PRN (07:00)
[2018-01-05] MEDS ORDERED: ATROPINE SULFATE 1MG/10ML SYR IV NR (07:00)
[2018-01-05] MEDS: CINACALCET HCL 90MG TABLET PO SCH (09:00)
[2018-01-05] MEDS: AMIODARONE HCL 200 MG TABLET PO SCH (09:00)
[2018-01-05] MEDS: FOLIC ACID/VITAMIN B COMP W-C TABLET PO SCH (09:00)
[2018-01-05] MEDS: FLUCONAZOLE 50MG TABLET PO SCH (09:00)
[2018-01-05] MEDS ORDERED: PANTOPRAZOLE SODIUM 40 MG/VIAL IV SCH (09:00)
[2018-01-05] MEDS: ASCORBIC ACID 250 MG TABLET PO SCH (09:00)
[2018-01-05 09:15] LABS: BG BASE EXCESS -18.3 mmol/L (-2.0-2.0); BG CARBOXYHEMOGLOBIN 0.3 % (0.5-1.5); BG DEOXYHEMOGLOBIN 0.9 % (0.0-5.0); BG FRACTION INSPIRED OXYGEN 100; BG HCO3 ACT 8.4 mmol/L (22.0-26.0); BG METHEMOGLOBIN 0.3 % (0.0-1.5); BG OXYGEN SATURATION 99.1 % (92.0-98.5); BG OXYHEMOGLOBIN 98.5 % (94.0-97.0); BG PCO2 23.5 mmHg (35.0-45.0); BG PH 7.173 (7.350-7.450); BG PO2 190.4 mmHg (75.0-100.0); BG SAMPLE SITE RIGHT RADIAL; BG TIDAL VOLUME(mL) 600 mL; BG TOTAL HEMOGLOBIN 10.8 g/dL (12.0-18.0); BG VENT MODE VENT - A/C; BG VENT RATE 18 set
[2018-01-05 09:15] LABS: CHLORIDE 94 mEq/L (98-107)
[2018-01-05] MEDS ORDERED: SODIUM BICARBONATE 8.4% 1 MEQ/ML 50ML SYR IV NR (09:30)
[2018-01-05 09:59] LABS: NUCLEATED RED BLOOD CELLS 5 /100 WBC; PLATELET ESTIMATE NORMAL
[2018-01-05] MEDS: INSULIN GLARGINE UD 100 UNITS/ML SYR SUBCUT SCH (10:00)
[2018-01-05] MEDS ORDERED: EPINEPHRINE 1 MG in SODIUM CHLORIDE 0.9% 249 ML IV PRN (10:00)
[2018-01-05] MEDS ORDERED: SODIUM BICARBONATE 150 MEQ in DEXTROSE 5% WATER 1,000 ML IV SCH (10:00)
[2018-01-05] MEDS ORDERED: ENOXAPARIN 40MG/0.4ML SYR SUBCUT SCH (10:30)
[2018-01-05] MEDS: VASOPRESSIN 10 UNIT in SODIUM CHLORIDE 0.9% 99.5 ML IV PRN ×2 (10:35→17:00)
[2018-01-05] MEDS ORDERED: EPINEPHRINE 4 MG in SODIUM CHLORIDE 0.9% 249 ML IV PRN (12:00)
[2018-01-05] MEDS ORDERED: ATROPINE SULFATE 1MG/10ML SYR ONE (12:59)
[2018-01-05] MEDS ORDERED: EPINEPHRINE 4 MG in DEXT 5% WATER 246 ML IV PRN (13:00)
[2018-01-05] MEDS ORDERED: DEXTROSE 50% WATER 50ML SYRINGE IV ONE (14:11)
[2018-01-05] MEDS ORDERED: EPINEPHRINE 0.1MG/ML (1:10,000) 10ML SYR ONE (14:11)
[2018-01-05] MEDS ORDERED: SODIUM BICARBONATE 7.5% 0.9 MEQ/ML 50ML SYR IV ONE (14:11)
[2018-01-05] MEDS ORDERED: LORAZEPAM 2MG/ML CPJ IV NR (17:36)
[2018-01-05] MEDS ORDERED: MORPHINE SULFATE 10 MG/ML CPJ IV NR (17:45)
[2018-01-05] MEDS ORDERED: MEROPENEM 500 MG in SODIUM CHLORIDE 0.9% 50 ML IV SCH (22:45)
[2018-01-06] MEDS ORDERED: MEROPENEM 500 MG in SODIUM CHLORIDE 0.9% 50 ML IV SCH ×2
[2018-01-06] MEDS ORDERED: PANTOPRAZOLE SODIUM 40 MG/VIAL IV SCH (09:00)
== END 2018-01-05 22:45 | disposition expired | DRG 871 ==
LOC: ER 18:33 → 3WST 22:42 → EDBEDREQTM 22:44 → EDBEDREQ 22:44 → 3WST 01-02 10:27 → MICUSO 01-03 18:33
PROVIDERS: ADMIT Internal Medicine; ATTEND Internal Medicine
PROC: 5A09357 Assistance with Respiratory Ventilation, Less than 24 Consecutive Hours, Continuous Positive Airway Pressure (ICD-10-PCS; 2018-01-01)
PROC: 5A1D70Z Performance of Urinary Filtration, Intermittent, Less than 6 Hours Per Day (ICD-10-PCS; 2018-01-01)
PROC: 5A09357 Assistance with Respiratory Ventilation, Less than 24 Consecutive Hours, Continuous Positive Airway Pressure (ICD-10-PCS; 2018-01-02)
PROC: 0F9430Z Drainage of Gallbladder with Drainage Device, Percutaneous Approach (ICD-10-PCS; 2018-01-03)
PROC: BD47ZZZ Ultrasonography of Gastrointestinal Tract (ICD-10-PCS; 2018-01-03)
PROC: 5A09357 Assistance with Respiratory Ventilation, Less than 24 Consecutive Hours, Continuous Positive Airway Pressure (ICD-10-PCS; 2018-01-03)
PROC: 5A1D70Z Performance of Urinary Filtration, Intermittent, Less than 6 Hours Per Day (ICD-10-PCS; 2018-01-03)
PROC: 5A1945Z Respiratory Ventilation, 24-96 Consecutive Hours (ICD-10-PCS; principal; 2018-01-04)
PROC: 0BH17EZ Insertion of Endotracheal Airway into Trachea, Via Natural or Artificial Opening (ICD-10-PCS; 2018-01-04)
PROC: 05H533Z Insertion of Infusion Device into Right Subclavian Vein, Percutaneous Approach (ICD-10-PCS; 2018-01-04)
PROC: B546ZZA Ultrasonography of Right Subclavian Vein, Guidance (ICD-10-PCS; 2018-01-04)
PROC: 5A12012 Performance of Cardiac Output, Single, Manual (ICD-10-PCS; 2018-01-05)
DX: A41.9 Sepsis, unspecified organism (principal); N18.6 End stage renal disease; J96.01 Acute respiratory failure with hypoxia; J96.02 Acute respiratory failure with hypercapnia; I50.33 Acute on chronic diastolic (congestive) heart failure; J18.9 Pneumonia, unspecified organism; R65.21 Severe sepsis with septic shock; K80.00 Calculus of gallbladder with acute cholecystitis without obstruction; I13.2 Hypertensive heart and chronic kidney disease with heart failure and with stage 5 chronic kidney disease, or end stage renal disease; E44.1 Mild protein-calorie malnutrition; J44.1 Chronic obstructive pulmonary disease with (acute) exacerbation; J44.0 Chronic obstructive pulmonary disease with (acute) lower respiratory infection; K92.0 Hematemesis; E87.2 Acidosis; J80 Acute respiratory distress syndrome; I69.351 Hemiplegia and hemiparesis following cerebral infarction affecting right dominant side; N17.9 Acute kidney failure, unspecified; Z68.44 Body mass index [BMI] 60.0-69.9, adult; K57.30 Diverticulosis of large intestine without perforation or abscess without bleeding; K76.89 Other specified diseases of liver; Z99.81 Dependence on supplemental oxygen; E66.01 Morbid (severe) obesity due to excess calories; Z99.2 Dependence on renal dialysis; D63.1 Anemia in chronic kidney disease; I50.9 Heart failure, unspecified; D53.9 Nutritional anemia, unspecified; E87.5 Hyperkalemia; I48.2 Chronic atrial fibrillation; Z66 Do not resuscitate; E11.21 Type 2 diabetes mellitus with diabetic nephropathy; R16.0 Hepatomegaly, not elsewhere classified; I46.9 Cardiac arrest, cause unspecified; I48.91 Unspecified atrial fibrillation; I95.9 Hypotension, unspecified; B95.2 Enterococcus as the cause of diseases classified elsewhere; Z16.21 Resistance to vancomycin; E11.65 Type 2 diabetes mellitus with hyperglycemia; R00.1 Bradycardia, unspecified; B96.20 Unspecified Escherichia coli [E. coli] as the cause of diseases classified elsewhere; Z16.12 Extended spectrum beta lactamase (ESBL) resistance; D25.9 Leiomyoma of uterus, unspecified; Z79.01 Long term (current) use of anticoagulants; Z79.4 Long term (current) use of insulin; Z79.899 Other long term (current) drug therapy; Z71.3 Dietary counseling and surveillance; Z87.01 Personal history of pneumonia (recurrent)
CPT/HCPCS: 31500; 36415; 36569; 36600; 47490; 70450; 71045; 74177; 76700; 76937; 78227; 80048; 80053; 80061; 80076; 82140; 82150; 82375; 82550; 82553; 82805; 82962; 83690; 83735; 83880; 84145; 84443; 84484; 85025; 85362; 85379; 85384; 85610; 85730; 87040; 87070; 87077; 87186; 87205; 93005; 93970; 94002; 94003; 94640; 94660; 96361; 96374; 97162; 99285; A4216; A9537; C1725; C1729; C1769; C9113; J0278; J0461; J1815; J2020; J2060; J2185; J2250; J2270; J2370; J2405; J2543; J2765; J3010; J3490; J7030; J7040; J7050; J7060; J7070; J7608; J7620; J7626; L8514; P9041; Q9967